=== PATIENT | female | born 1955 | race Caucasian/White ===

== ENCOUNTER 2018-01-18 13:22 | Outpatient (CLI) | payer BC | END 2018-01-18 13:23 | disposition home or self-care (01) | LOC: BICMAMMO 13:22 | PROVIDERS: ATTEND Family Medicine | DX: Z12.31 Encounter for screening mammogram for malignant neoplasm of breast (principal); N63.10 Unspecified lump in the right breast, unspecified quadrant; Z80.3 Family history of malignant neoplasm of breast | CPT/HCPCS: 77063; 77067 ==

== ENCOUNTER 2018-05-24 07:56 | Outpatient (CLI) | payer MEDICARE, BC ==
--- NOTE | 2018-05-24 09:44 | CT ---
NONCONTRAST ENHANCED CT CHEST: History: CT pulmonary lung scan. Patient has a personal history of tobacco use. 35-year pack year his tory. FINDINGS: Noncontrast enhanced CT of the chest demonstrates some minimal areas of bilateral apical lung scarrin g. No definite evidence of significant pulmonary parenchymal masses or lesions seen. No evidence of pleural or pericardial effusions seen. Minimal LAD and right coronary artery calcifications seen. There does appear to be some minimal pretracheal lymphadenopathy. No significant evidence of axillary or hilar lymphadenopathy is seen. IMPRESSION: 1. Lung RADS category 1. 2. Lung RADS category S - pretracheal prominent lymph nodes, unknown clinical significance. POS: [facility]
== END 2018-05-24 07:57 | disposition home or self-care (01) ==
LOC: CT 07:56
PROVIDERS: ATTEND Family Medicine
DX: Z87.891 Personal history of nicotine dependence (principal)
CPT/HCPCS: G0297

== ENCOUNTER 2019-01-20 15:44 | Outpatient (CLI) | payer MEDICARE, BC ==
--- NOTE | 2019-01-20 16:21 | MMO ---
Bilateral MAMMO Bilat Screen [facility]. CLINICAL HISTORY: Patient is 63 years old and is seen for screening. The patient has the following family history of breast cancer: sister, at age 63. The patient has no personal history of cancer. The patient has a history of right Excisional Biopsy in 1971 - benign and left Excisional Biopsy in 1994 - benign. VIEWS: The views performed were: bilateral craniocaudal with tomosynthesis and bilateral mediolateral oblique with tomosynthesis. FILMS COMPARED: The present examination has been compared to prior imaging studies performed at [facility] on 01/12/2015, 01/14/2016, 01/14/2017 and 01/18/2018. MAMMOGRAM FINDINGS: The breasts are heterogeneously dense, which could obscure a lesion on mammography. There are stable benign appearing calcifications seen in both breasts. There are no suspicious masses, suspicious calcifications, or new areas of architectural distortion. IMPRESSION: THERE IS NO MAMMOGRAPHIC EVIDENCE OF MALIGNANCY. A ROUTINE FOLLOW-UP MAMMOGRAM IN 1 YEAR IS RECOMMENDED. THE RESULTS OF THIS EXAM WERE SENT TO THE PATIENT. ACR BI-RADS Category 2 - Benign finding MAMMOGRAPHY NOTE: 1. A negative mammogram report should not delay a biopsy if a dominant of clinically suspicious mass is present. 2. Approximately 10% to 15% of breast cancers are not detected by mammography. 3. Adenosis and dense breasts may obscure an underlying neoplasm.
== END 2019-01-20 15:45 | disposition home or self-care (01) ==
LOC: BICMAMMO 15:44
PROVIDERS: ATTEND Family Medicine
DX: Z12.31 Encounter for screening mammogram for malignant neoplasm of breast (principal); Z80.3 Family history of malignant neoplasm of breast
CPT/HCPCS: 77063; 77067

== ENCOUNTER 2019-05-25 12:14 | Outpatient (CLI) | payer MEDICARE, BC ==
--- NOTE | 2019-05-25 13:28 | CT ---
LOW DOSE SCREENING CT CHEST: 05/25/2019 HISTORY: COPD. A 30 year history of smoking. A personal history of tobacco use. COMPARISON: 05/24/2018 TECHNIQUE: Axial CT imaging obtained at 1.25 mm intervals through the chest without contrast using a low dose sc reening protocol. Coronal and sagittal reformatted imaging obtained. FINDINGS: Evaluation of the imaged viscera and vascular structures and for lymphadenopathy is limited on noncon trast enhanced imaging. The images upper abdomen demonstrates atherosclerotic calcification within th e abdominal aorta and its branches. Limited assessment for lymphadenopathy within the chest appears grossly unremarkable. Stable mildly p rominent pretracheal lymph node noted, measuring 9 mm in short axis dimension. No pleural, pericardia l or mediastinal fluid is seen. There is scattered coronary arterial calcification. There is no pneumothorax evident on either side. There are stable biapical fibronodular densities abutting the apical pleura. RIGHT UPPER LOBE: There is a nodule in the anterolateral aspect of the right upper lobe on images 28, measuring approximately 3-4 mm, stable. There is a lateral right upper lobe pulmonary nodule on imag e 47, measuring approximately 3 mm, similar when compared to prior imaging. RIGHT MIDDLE LOBE: No discrete pulmonary parenchymal mass lesion or nodule. RIGHT LOWER LOBE: No discrete pulmonary parenchymal mass lesion or nodule. LEFT UPPER LOBE: A 2-3 mm nodule posteriorly noted on axial image 32, within the left lung apex. Stab le tiny nodule noted anteriorly on image 37. LEFT LOWER LOBE: No dominant pulmonary parenchymal mass lesion or nodule seen. Review of the osseous structures demonstrates stable mid thoracic spine disk space narrowing and degenerative endplate garcia ge. No worrisome lytic or blastic bone lesion. IMPRESSION: Lung-RADS category 2 - benign appearance or behavior. Continue annual screening with low dose chest CT in 12 months. POS: [facility]
== END 2019-05-25 12:15 | disposition home or self-care (01) ==
LOC: CT 12:14
PROVIDERS: ATTEND Family Medicine
DX: Z87.891 Personal history of nicotine dependence (principal)
CPT/HCPCS: G0297

== ENCOUNTER 2020-02-06 14:05 | Outpatient (CLI) | payer MEDICARE, BC ==
--- NOTE | 2020-02-06 14:47 | MMO ---
Bilateral MAMMO Bilat Screen [facility]. CLINICAL HISTORY: Patient is 64 years old and is seen for screening. The patient has the following family history of breast cancer: sister, at age 63. The patient has no personal history of cancer. The patient has a history of right Excisional Biopsy in 1971 - benign and left Excisional Biopsy in 1994 - benign. VIEWS: The views performed were: bilateral craniocaudal with tomosynthesis; bilateral mediolateral oblique with tomosynthesis; and bilateral exaggerated craniocaudal. FILMS COMPARED: The present examination has been compared to prior imaging studies performed at [facility] on 01/14/2016, 01/14/2017, 01/18/2018 and 01/20/2019. This study has been interpreted with the assistance of computer-aided detection. MAMMOGRAM FINDINGS: The breasts are heterogeneously dense, which could obscure a lesion on mammography. There are stable benign appearing calcifications seen in both breasts. There are no suspicious masses, suspicious calcifications, or new areas of architectural distortion. IMPRESSION: THERE IS NO MAMMOGRAPHIC EVIDENCE OF MALIGNANCY. A ROUTINE FOLLOW-UP MAMMOGRAM IN 1 YEAR IS RECOMMENDED. THE RESULTS OF THIS EXAM WERE SENT TO THE PATIENT. ACR BI-RADS Category 2 - Benign finding MAMMOGRAPHY NOTE: 1. A negative mammogram report should not delay a biopsy if a dominant of clinically suspicious mass is present. 2. Approximately 10% to 15% of breast cancers are not detected by mammography. 3. Adenosis and dense breasts may obscure an underlying neoplasm. Reported by: RACHEL VELASQUEZ MD Electonically Signed: [id number]
== END 2020-02-06 14:06 | disposition home or self-care (01) ==
LOC: BICMAMMO 14:05
PROVIDERS: ATTEND Family Medicine
DX: Z12.31 Encounter for screening mammogram for malignant neoplasm of breast (principal); Z80.3 Family history of malignant neoplasm of breast; Z91.89 Other specified personal risk factors, not elsewhere classified
CPT/HCPCS: 77063; 77067

== ENCOUNTER 2020-07-24 14:26 | Outpatient (CLI) | payer MEDICARE, BC ==
--- NOTE | 2020-07-24 15:07 | CT ---
EXAM: CT Pulmonary Lung Scan PROVIDED CLINICAL HISTORY: Personal history tobacco use/nicotine dependence. Annual follow-up low-dose lung screening exam. COMPARISON: 05/25/2019 FINDINGS: Biapical pleural and parenchymal scarring is again seen similar to prior exam. Small nodule measuring 4 mm in the anterolateral right upper lobe (image 28) is again seen and overal l stable. An approximately 4 mm pulmonary nodule in the right anterolateral upper lobe (image 41) is again seen and stable. A 4 mm pulmonary nodule posterior left upper lobe near left lung apex (imag e 20) is again seen and overall stable. A tiny approximately 2 mm nodular density is also again seen in the anterior left upper lobe (image 34). No additional pulmonary nodule or mass is appreciate d. No pleural effusion is seen. A few peripheral blebs are seen at each lung apex. Lack of intravenous contrast limits evaluation of vascular structures and mediastinum. A mildly promi nent precarinal lymph node is again seen measuring 1.1 cm in short axis dimension. Mildly prominent prevascular space lymph nodes are also again seen and unchanged largest measuring 1 cm in short axis dimension. Vascular calcifications are seen in the coronary arteries and in the thoracic aorta. No additional significant interval change from prior exam. IMPRESSION: 1. Lung RADS category 2-benign appearance or behavior. Continued annual low-dose CT scan thorax in 12 months is recommended. 2. Lung RADS category S-nonspecific stable mildly prominent precarinal and prevascular space lymph no hector.
== END 2020-07-24 14:27 | disposition home or self-care (01) ==
LOC: BICCT 14:26
PROVIDERS: ATTEND Family Medicine
DX: Z12.2 Encounter for screening for malignant neoplasm of respiratory organs (principal); J44.9 Chronic obstructive pulmonary disease, unspecified; R59.0 Localized enlarged lymph nodes; Z87.891 Personal history of nicotine dependence
CPT/HCPCS: G0297

== ENCOUNTER 2020-09-28 10:37 | Outpatient (CLI) | payer MEDICARE, BC ==
--- NOTE | 2020-09-28 11:12 | ULT ---
EXAM: US Gallbladder RUQ CLINICAL HISTORY: Right upper quadrant pain. COMPARISON: 03/15/2017 FINDINGS: Pancreas: The head and proximal pancreatic body have a normal echotexture. The remainder the pancrea s is obscured by bowel gas Liver:Hepatic parenchyma has a normal echotexture. No hepatic masses or intrahepatic biliary dilatati on. Right hepatic lobe: 11.0 cm Gallbladder: No sonographic evidence of cholelithiasis, gallbladder wall thickening or pericholecysti c fluid. Llamas's sign:Negative Portal Vein: Patent. Appropriate directional flow Bile ducts: 0.3 cm Right kidney: No hydronephrosis. Right kidney measures 9.4 cm in length. IMPRESSION: Unremarkable exam.
== END 2020-09-28 10:38 | disposition home or self-care (01) ==
LOC: BICULT 10:37
PROVIDERS: ATTEND Family Medicine
DX: R10.11 Right upper quadrant pain (principal)
CPT/HCPCS: 76705

== ENCOUNTER 2020-10-08 14:30 | Outpatient (CLI) | payer MEDICARE, BC ==
--- NOTE | 2020-10-08 15:15 | RAD ---
Exam: XR Hand Lt 3 View STANDARD HISTORY: Inflammatory arthritis. Rheumatoid factor positive. Patient unable to open left hand. COMPARISON: None FINDINGS: No acute fracture, dislocation, or other acute osseous abnormality is identified. 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 No juxta-articu lar erosions are seen. IMPRESSION: No acute osseous abnormality.
== END 2020-10-08 14:31 | disposition home or self-care (01) ==
LOC: BICRAD 14:30
DX: M19.90 Unspecified osteoarthritis, unspecified site (principal); R76.8 Other specified abnormal immunological findings in serum

== ENCOUNTER 2020-11-29 15:32 | Outpatient (CLI) | payer MEDICARE, BC | END 2020-11-29 15:33 | disposition home or self-care (01) | LOC: BICRAD 15:32 | PROVIDERS: ATTEND Internal Medicine Rheumatology | DX: R76.0 Raised antibody titer (principal); M18.11 Unilateral primary osteoarthritis of first carpometacarpal joint, right hand; M19.041 Primary osteoarthritis, right hand ==

== ENCOUNTER 2021-02-08 09:19 | Outpatient (CLI) | payer MEDICARE, BC | END 2021-02-08 09:20 | disposition home or self-care (01) | LOC: BICMAMMO 09:19 | PROVIDERS: ATTEND Family Medicine | DX: Z12.31 Encounter for screening mammogram for malignant neoplasm of breast (principal); Z80.3 Family history of malignant neoplasm of breast | CPT/HCPCS: 77063; 77067 ==

== ENCOUNTER 2021-07-24 10:27 | Outpatient (CLI) | payer MEDICARE, BC | END 2021-07-24 10:28 | disposition home or self-care (01) | LOC: BICCT 10:27 | PROVIDERS: ATTEND Family Medicine | DX: Z12.2 Encounter for screening for malignant neoplasm of respiratory organs (principal); Z87.891 Personal history of nicotine dependence | CPT/HCPCS: 71271 ==

== ENCOUNTER 2021-12-10 12:11 | Outpatient (CLI) | payer MEDICARE, BC | END 2021-12-10 12:12 | disposition home or self-care (01) | LOC: BICRAD 12:11 | PROVIDERS: ATTEND Family Medicine | DX: M79.675 Pain in left toe(s) (principal); M79.672 Pain in left foot; M79.89 Other specified soft tissue disorders ==

== ENCOUNTER 2022-02-11 12:00 | Outpatient (CLI) | payer MEDICARE, BC | END 2022-02-11 12:01 | disposition home or self-care (01) | LOC: BICMAMMO 12:00 | PROVIDERS: ATTEND Family Medicine | DX: Z12.31 Encounter for screening mammogram for malignant neoplasm of breast (principal); Z80.3 Family history of malignant neoplasm of breast; Z91.89 Other specified personal risk factors, not elsewhere classified | CPT/HCPCS: 77063; 77067 ==

== ENCOUNTER 2022-07-28 09:31 | Outpatient (CLI) | payer MEDICARE, BC | END 2022-07-28 09:32 | disposition home or self-care (01) | LOC: BICCT 09:31 | PROVIDERS: ATTEND Family Medicine | DX: Z12.2 Encounter for screening for malignant neoplasm of respiratory organs (principal); Z87.891 Personal history of nicotine dependence; J44.9 Chronic obstructive pulmonary disease, unspecified | CPT/HCPCS: 71271 ==

== ENCOUNTER 2023-12-21 10:35 | Outpatient (CLI) | payer MEDICARE | END 2023-12-21 10:36 | disposition home or self-care (01) | LOC: BICCT 10:35 | PROVIDERS: ATTEND Family Medicine | DX: Z12.2 Encounter for screening for malignant neoplasm of respiratory organs (principal); N20.0 Calculus of kidney; J21.9 Acute bronchiolitis, unspecified; Z87.891 Personal history of nicotine dependence | CPT/HCPCS: 71271 ==

== ENCOUNTER 2024-02-15 11:42 | Outpatient (CLI) | payer MEDICARE | END 2024-02-15 11:43 | disposition home or self-care (01) | LOC: BICMAMMO 11:42 | PROVIDERS: ATTEND Family Medicine | DX: Z12.31 Encounter for screening mammogram for malignant neoplasm of breast (principal); Z80.3 Family history of malignant neoplasm of breast; Z91.89 Other specified personal risk factors, not elsewhere classified | CPT/HCPCS: 77063; 77067 ==

== ENCOUNTER 2025-03-21 11:28 | Outpatient (CLI) | payer MEDICARE | END 2025-03-21 11:29 | disposition home or self-care (01) | LOC: BICRAD 11:28 | PROVIDERS: ATTEND Family Medicine | DX: M25.521 Pain in right elbow (principal); M19.021 Primary osteoarthritis, right elbow ==